=== PATIENT | male | born 1950 | race Caucasian/White ===

== ENCOUNTER → 2019-05-20 | Outpatient (CLI) | payer OTHER | END | disposition home or self-care (01) | LOC: RAH 10:10 | PROVIDERS: ATTEND Internal Medicine Hematology & Oncology | DX: N28.1 Cyst of kidney, acquired (principal); K86.1 Other chronic pancreatitis | CPT/HCPCS: 76700 ==

== ENCOUNTER → 2020-01-31 | Outpatient (CLI) | payer OTHER | END | disposition home or self-care (01) | LOC: RAH 14:42 | PROVIDERS: ATTEND Family Medicine | DX: R60.0 Localized edema (principal) | CPT/HCPCS: 93971 ==

== ENCOUNTER → 2020-07-24 | Outpatient (CLI) | payer OTHER ==
[2020-07-24 14:21] LABS: BASOPHILS % (AUTO) 0.5 % (0.0-5.0); EOSINOPHILS % (AUTO) 5.5 % (0.0-8.0); HEMATOCRIT 42.8 % (42-54); LYMPHOCYTES % (AUTO) 24.8 % (21.0-51.0); MEAN CORPUSCULAR HEMOGLOBIN 31.9 pg (27.0-33.0); MEAN CORPUSCULAR HGB CONC 33.2 g/dL (32.0-36.0); MEAN CORPUSCULAR VOLUME 96.2 fL (79-99); MONOCYTES % (AUTO) 10.1 % (3.0-13.0); NEUTROPHILS % (AUTO) 58.9 % (40.0-77.0); PLATELET COUNT (AUTO) 179 K/uL (130-400); RED BLOOD CELL COUNT(AUTO) 4.45 MIL/uL (4.50-6.20); RED CELL DISTRIBUTION WIDTH 11.9 % (11.0-15.5)
[2020-07-24 14:30] LABS: CREATININE 0.9 mg/dL (0.5-1.5); POTASSIUM 4.2 mmol/L (3.5-5.1)
--- NOTE | 2020-07-24 15:21 | NUR ---
ekg ekg reveiwed by dr. sweeney. requesting cardiac clearance. dr. serrato notified.message left with Candida at his office. ekg faxed to dr. serrato per his request. or banana loader notified
== END | disposition home or self-care (01) ==
LOC: DAH 10:00 → EDSTATUS 07-25 15:00
PROVIDERS: ATTEND Orthopaedic Surgery
DX: G56.01 Carpal tunnel syndrome, right upper limb (principal); Z20.828 Contact with and (suspected) exposure to other viral communicable diseases; I44.2 Atrioventricular block, complete; I45.10 Unspecified right bundle-branch block; Z53.8 Procedure and treatment not carried out for other reasons
CPT/HCPCS: 36415; 80048; 85025; 93005; A6260; C9803; U0003

== ENCOUNTER → 2020-09-11 | Outpatient (CLI) | payer OTHER | END | disposition home or self-care (01) | LOC: CANPRECLI → SHCH 16:05 | PROVIDERS: ATTEND Internal Medicine Cardiovascular Disease | DX: I10 Essential (primary) hypertension (principal) | CPT/HCPCS: 93306; 93356 ==

== ENCOUNTER 2020-10-20 05:55 | Day surgery (SDC) | payer OTHER ==
[2020-10-18 09:46] VITALS: BP 135/68
[2020-10-18 12:09] LABS: BASOPHILS % (AUTO) 1.3 % (0.0-5.0); EOSINOPHILS % (AUTO) 3.3 % (0.0-8.0); LYMPHOCYTES % (AUTO) 27.8 % (21.0-51.0); MEAN CORPUSCULAR HEMOGLOBIN 32.1 pg (27.0-33.0); MEAN CORPUSCULAR HGB CONC 34.3 g/dL (32.0-36.0); MEAN CORPUSCULAR VOLUME 93.6 fL (79-99); MONOCYTES % (AUTO) 6.5 % (3.0-13.0); NEUTROPHILS % (AUTO) 60.8 % (40.0-77.0); PLATELET COUNT (AUTO) 207 K/uL (130-400); RED CELL DISTRIBUTION WIDTH 12.2 % (11.0-15.5)
[2020-10-18 12:25] LABS: CREATININE 0.8 mg/dL (0.5-1.5); POTASSIUM 4.1 mmol/L (3.5-5.1)
[2020-10-18 12:31] LABS: INR 1.04 (0.85-1.15); PROTHROMBIN TIME 11.3 SEC (9.6-11.6)
[2020-10-18 12:32] LABS: PARTIAL THROMBOPLASTIN TIME 31.6 SEC (26.3-35.5)
[2020-10-20] VITALS (9 sets, daily range): BP systolic 92–127; BP diastolic 48–72
[~2020-10-20] VITALS: Ht 167.6 cm; Wt 77.7 kg
[~2020-10-20 05:55] MED LIST: LISI-809 PO; SODIUM CHLORIDE 0.9% 1000ML 1,000 ML IV SCH
[2020-10-20] MEDS ORDERED: MIDAZOLAM HCL 1 MG/ML 2ML VIAL ONE ×2 (07:44→07:58)
[2020-10-20] MEDS ORDERED: MEPERIDINE-PF 25 MG/ML SYG ONE ×2 (07:45→07:58)
[2020-10-20] MEDS ORDERED: LIDOCAINE HCL 2% 20ML ONE (07:45)
[2020-10-20] MEDS ORDERED: ISOPROTERENOL HCL 0.2 MG/ML AMP/VIAL/BAG ONE (08:10)
[2020-10-20] MEDS ORDERED: TRAMADOL HCL 50 MG TABLET PO SCH (09:45)
== END 2020-10-20 11:55 | disposition home or self-care (01) ==
LOC: DAH 05:55
PROVIDERS: ATTEND Internal Medicine Cardiovascular Disease
DX: I44.2 Atrioventricular block, complete (principal); I49.3 Ventricular premature depolarization; I45.10 Unspecified right bundle-branch block; I10 Essential (primary) hypertension; Z98.890 Other specified postprocedural states; Z79.01 Long term (current) use of anticoagulants; Z79.899 Other long term (current) drug therapy
CPT/HCPCS: 36415; 80048; 85025; 85610; 85730; 93619; 93623; A4215; A4216; A4221; A4222; A4223 ×3; A4606; A4663; C1730 ×2; C1894 ×3; J1644; J2175 ×2; J2250 ×2; J3490 ×2; 99156; 99157

== ENCOUNTER 2020-11-06 10:46 | Day surgery (SDC) | payer OTHER ==
[~2020-11-06] VITALS: Ht 182.9 cm; Wt 79.4 kg
[~2020-11-06 10:46] MED LIST changes: -SODIUM CHLORIDE 0.9% 1000ML 1,000 ML IV SCH
[2020-11-06 16:14] LABS: BASOPHILS % (AUTO) 0.6 % (0.0-5.0); EOSINOPHILS % (AUTO) 4.2 % (0.0-8.0); HEMATOCRIT 43.4 % (42-54); LYMPHOCYTES % (AUTO) 29.3 % (21.0-51.0); MEAN CORPUSCULAR HEMOGLOBIN 32.2 pg (27.0-33.0); MEAN CORPUSCULAR HGB CONC 33.9 g/dL (32.0-36.0); MEAN CORPUSCULAR VOLUME 95.2 fL (79-99); MONOCYTES % (AUTO) 7.8 % (3.0-13.0); NEUTROPHILS % (AUTO) 57.9 % (40.0-77.0); PLATELET COUNT (AUTO) 165 K/uL (130-400); RED BLOOD CELL COUNT(AUTO) 4.56 MIL/uL (4.50-6.20); RED CELL DISTRIBUTION WIDTH 12.3 % (11.0-15.5)
[2020-11-06 16:26] LABS: INR 1.06 (0.85-1.15); PROTHROMBIN TIME 11.5 SEC (9.6-11.6)
[2020-11-06 16:27] VITALS: BP 122/62
[2020-11-06 16:28] LABS: PARTIAL THROMBOPLASTIN TIME 33.9 SEC (26.3-35.5)
[2020-11-07] VITALS (10 sets, daily range): BP systolic 106–127; BP diastolic 53–80
[2020-11-07] MEDS ORDERED: LACTATED RINGERS 1000ML 1,000 ML IV SCH (08:00)
[2020-11-07] MEDS ORDERED: CEFAZOLIN SODIUM 1 GM VIAL IVP ONE (08:00)
[2020-11-07] MEDS ORDERED: CEFAZOLIN SODIUM 1 GM VIAL ONE (10:44)
[2020-11-07] MEDS ORDERED: SUCCINYLCHOLINE CHLORIDE 20 MG/ML 10 ML VIAL ONE (11:04)
[2020-11-07] MEDS ORDERED: PROPOFOL 10 MG/ML 20ML VIAL IV ONE (11:04)
[2020-11-07] MEDS ORDERED: DEXAMETHASONE SOD PHOSPHATE 10MG/ML 1ML VIAL ONE (11:04)
[2020-11-07] MEDS ORDERED: GLYCOPYRROLATE 1 MG/5 ML SYRINGE ONE (11:04)
[2020-11-07] MEDS ORDERED: LIDOCAINE PF 2% 5ML ABBOJECT ONE (11:04)
[2020-11-07] MEDS ORDERED: ROCURONIUM 10MG/1ML SYR 10 MG/ML ML ONE (11:05)
[2020-11-07] MEDS ORDERED: FENTANYL CITRATE PF 50 MCG/1 ML 2ML VIAL ONE ×2 (11:05→12:11)
[2020-11-07] MEDS ORDERED: MIDAZOLAM HCL 1 MG/ML 2ML VIAL ONE (11:05)
[2020-11-07] MEDS ORDERED: LIDOCAINE HCL-MPF 0.5% 50ML VIAL IJ ONE (11:10)
[2020-11-07] MEDS ORDERED: MEPERIDINE-PF 25 MG/ML SYG ONE ×2 (12:23→12:45)
== END 2020-11-07 13:45 | disposition home or self-care (01) ==
LOC: DAH 10:46
PROVIDERS: ATTEND Orthopaedic Surgery
DX: G56.01 Carpal tunnel syndrome, right upper limb (principal); Z87.891 Personal history of nicotine dependence; Z20.828 Contact with and (suspected) exposure to other viral communicable diseases; Z79.01 Long term (current) use of anticoagulants; Z79.899 Other long term (current) drug therapy
CPT/HCPCS: 36415; 64721; 85025; 85610; 85730; 87426; 93005; A4221; A4222; A4223; A4565; A4663; A4930; A6223; J0330; J0690; J1100; J2001; J2175 ×2; J2250; J2704; J3010 ×2; J3490 ×2; J7120; U0003

== ENCOUNTER 2020-11-11 02:20 | Emergency (ER) | payer OTHER ==
[2020-11-11] MEDS ORDERED: KETOROLAC TROMETHAMINE 60 MG/2 ML VIAL ONE (02:57)
== END 2020-11-11 03:10 | disposition home or self-care (01) ==
LOC: EDH 02:20
DX: G89.18 Other acute postprocedural pain (principal)
CPT/HCPCS: 29125; 96372; 99283; J1885

== ENCOUNTER 2021-03-05 13:57 | Emergency (ER) | payer OTHER ==
[~2021-03-05] VITALS: Ht 182.9 cm; Wt 81.6 kg
[2021-03-05] MEDS ORDERED: TETANUS/DIPHTHERIA TOXOID [ADULT] 0.5 ML VIAL IM ONE (17:00)
[2021-03-05] MEDS ORDERED: HYDROCODONE/ACETAMINOPHEN 5/325 MG TAB PO ONE (17:00)
[2021-03-05] MEDS ORDERED: CEPH500B PO (17:26)
== END 2021-03-05 17:40 | disposition home or self-care (01) ==
LOC: EDH 13:57
DX: S61.412A Laceration without foreign body of left hand, initial encounter (principal); Z79.899 Other long term (current) drug therapy; W32.0XXA Accidental handgun discharge, initial encounter; Y93.89 Activity, other specified; Y92.89 Other specified places as the place of occurrence of the external cause; Y99.8 Other external cause status
CPT/HCPCS: 12001; 90471; 90714

== ENCOUNTER 2021-03-18 16:18 | Emergency (ER) | payer OTHER ==
[~2021-03-18] VITALS: Ht 182.9 cm; Wt 81.6 kg
[~2021-03-18 16:18] MED LIST changes: +CEPH500B PO
[2021-03-18 16:56] VITALS: BP 141/77
== END 2021-03-18 17:01 | disposition home or self-care (01) ==
LOC: EDH 16:18
DX: S61.412D Laceration without foreign body of left hand, subsequent encounter (principal); Z79.899 Other long term (current) drug therapy; X58.XXXD Exposure to other specified factors, subsequent encounter
CPT/HCPCS: 99281

== ENCOUNTER → 2021-10-12 | Outpatient (CLI) | payer OTHER ==
[~2021-10-12] MED LIST changes: -LISI-809 PO; +LISI5TAB21 PO
== END | disposition home or self-care (01) ==
LOC: SHCH 13:34
PROVIDERS: ATTEND Internal Medicine Cardiovascular Disease
DX: I87.2 Venous insufficiency (chronic) (peripheral) (principal)
CPT/HCPCS: 93970

== ENCOUNTER 2022-02-10 21:00 | Emergency (ER) | payer OTHER ==
[~2022-02-10] VITALS: Ht 182.9 cm; Wt 83.5 kg
[2022-02-10] MEDS ORDERED: GABA300C PO (21:27)
[2022-02-10] MEDS ORDERED: HYDROCODONE/ACETAMINOPHEN 5/325 MG TAB PO ONE (21:30)
[2022-02-10] MEDS ORDERED: KETOROLAC 60 MG VIAL (30MG/ML) IM ONE (21:30)
[2022-02-10 22:13] VITALS: BP 135/78
== END 2022-02-10 22:12 | disposition home or self-care (01) ==
LOC: EDH 21:00
DX: M79.641 Pain in right hand (principal); Z79.1 Long term (current) use of non-steroidal anti-inflammatories (NSAID); Z79.899 Other long term (current) drug therapy
CPT/HCPCS: 96372; 99283; J1885

== ENCOUNTER → 2022-06-13 | Outpatient (CLI) | payer OTHER ==
[~2022-06-13] MED LIST changes: +GABA300C PO
== END | disposition home or self-care (01) ==
LOC: SHCH 15:05
PROVIDERS: ATTEND Internal Medicine Cardiovascular Disease
DX: I87.2 Venous insufficiency (chronic) (peripheral) (principal)
CPT/HCPCS: 93970

== ENCOUNTER → 2022-09-18 | Outpatient (CLI) | payer OTHER ==
[2022-09-18 16:23] LABS: BASOPHILS % (AUTO) 0.6 % (0.0-5.0); EOSINOPHILS % (AUTO) 2.1 % (0.0-8.0); HEMATOCRIT 46.4 % (42-54); LYMPHOCYTES % (AUTO) 17.5 % (21.0-51.0); MEAN CORPUSCULAR HEMOGLOBIN 32.5 pg (27.0-33.0); MEAN CORPUSCULAR HGB CONC 32.8 g/dL (32.0-36.0); MEAN CORPUSCULAR VOLUME 99.1 fL (79-99); MONOCYTES % (AUTO) 7.9 % (3.0-13.0); NEUTROPHILS % (AUTO) 71.5 % (40.0-77.0); PLATELET COUNT (AUTO) 201 K/uL (130-400); RED BLOOD CELL COUNT(AUTO) 4.68 MIL/uL (4.50-6.20); RED CELL DISTRIBUTION WIDTH 12.4 % (11.0-15.5); WHITE BLOOD COUNT (AUTO) 10.8 K/uL (4.8-10.8)
[2022-09-18 16:31] LABS: POTASSIUM 4.6 mmol/L (3.5-5.1)
[2022-09-18 16:34] LABS: INR 0.95 (0.85-1.15); PROTHROMBIN TIME 10.4 SEC (9.6-11.6)
[2022-09-18 16:35] LABS: PARTIAL THROMBOPLASTIN TIME 32.7 SEC (26.3-35.5)
== END | disposition home or self-care (01) ==
LOC: LAB 15:30
PROVIDERS: ATTEND Internal Medicine Cardiovascular Disease
DX: I10 Essential (primary) hypertension (principal); I87.1 Compression of vein; I87.2 Venous insufficiency (chronic) (peripheral); M79.89 Other specified soft tissue disorders
CPT/HCPCS: 36415; 80048; 85025; 85610; 85730

== ENCOUNTER → 2023-05-10 | Outpatient (CLI) | payer OTHER | END | disposition home or self-care (01) | LOC: SHCH 12:48 | PROVIDERS: ATTEND Internal Medicine Cardiovascular Disease | DX: I87.2 Venous insufficiency (chronic) (peripheral) (principal); I87.1 Compression of vein; Z98.890 Other specified postprocedural states | CPT/HCPCS: 93970 ==

== ENCOUNTER 2024-01-10 04:13 | Observation (INO) | payer OTHER ==
[~2024-01-10] VITALS: Ht 182.9 cm; Wt 79.1 kg
[2024-01-10 04:29] LABS: BASOPHILS # (AUTO) 0.05 K/uL (0.00-0.20); BASOPHILS % (AUTO) 0.2 % (0.0-5.0); EOSINOPHILS # (AUTO) 0.04 K/uL (0.00-0.70); EOSINOPHILS % (AUTO) 0.2 % (0.0-8.0); HEMATOCRIT 51.2 % (42-54); IMMATURE GRANULOCYTE ABSOLUTE 0.11 K/uL (0-1); LYMPHOCYTES # (AUTO) 1.4 K/uL (1.0-4.8); LYMPHOCYTES % (AUTO) 6.3 % (21.0-51.0); MEAN CORPUSCULAR HEMOGLOBIN 32.4 pg (27.0-33.0); MEAN CORPUSCULAR HGB CONC 34.8 g/dL (32.0-36.0); MEAN CORPUSCULAR VOLUME 93.1 fL (79-99); MONOCYTES # (AUTO) 1.3 K/uL (0.1-1.0); MONOCYTES % (AUTO) 5.9 % (3.0-13.0); NEUTROPHILS % (AUTO) 86.9 % (40.0-77.0); PLATELET COUNT (AUTO) 204 K/uL (130-400); RED CELL DISTRIBUTION WIDTH 12.9 % (11.0-15.5); WHITE BLOOD COUNT (AUTO) 21.9 K/uL (4.8-10.8)
[2024-01-10] MEDS: LACTATED RINGERS 1000ML 1,000 ML IV ONE (04:34)
[2024-01-10 04:38] LABS: CREATININE 1.5 mg/dL (0.5-1.3); POTASSIUM 4.7 mmol/L (3.5-5.1)
[2024-01-10 05:42] LABS: ADD UA MICROSCOPIC YES; APPEARANCE,URINE CLEAR (CLEAR); BILIRUBIN,URINE NEGATIVE (NEGATIVE); COLOR,URINE LIGHT-YELLOW (YELLOW); GLUCOSE, URINE (UA) >=1000 mg/dL (NEGATIVE); KETONES,URINE 20 mg/dL (NEGATIVE); LEUKOCYTE ESTERASE ,URINE 25 Leu/uL (NEGATIVE); NITRATE,URINE NEGATIVE (NEGATIVE); OCCULT BLOOD,URINE SMALL (NEGATIVE); PROTEIN,URINE NEGATIVE (NEGATIVE); UROBILINOGEN,URINE 0.2 mg/dL (0.2-1.0)
[2024-01-10 05:46] LABS: BACTERIA,URINE RARE /HPF (None Seen)
[2024-01-10] MEDS: CEFTRIAXONE 2GM VIAL IVPB ONE (05:54)
[2024-01-10] MEDS: 0.9%NACL 1000ML 2,328 ML IV ONE (05:56)
[2024-01-10 06:06] LABS: ALBUMIN 3.9 g/dL (3.5-5.0); BILIRUBIN,TOTAL 1.1 mg/dL (0.2-1.0); CREATININE 1.4 mg/dL (0.5-1.3); POTASSIUM 4.3 mmol/L (3.5-5.1); TOTAL PROTEIN, SERUM 6.9 g/dL (6.0-8.3)
[2024-01-10] MEDS: METRONIDAZOLE 500MG/100ML BAG IV SCH (06:08)
[2024-01-10] MEDS ORDERED: DOCUSATE SODIUM 100 MG CAP PO PRN (06:30)
[2024-01-10] MEDS ORDERED: LACTULOSE 20 GM/30 ML UDCUP PO PRN (06:30)
[2024-01-10] MEDS ORDERED: ACETAMINOPHEN 325 MG TAB PO PRN (06:30)
[2024-01-10] MEDS ORDERED: TEMAZEPAM 15 MG CAPSULE PO PRN (06:30)
[2024-01-10] MEDS ORDERED: IPRATROPIUM 0.5 MG/2.5 ML INH IH PRN (06:30)
[2024-01-10] MEDS ORDERED: ACETAMINOPHEN 650 MG SUPPOSITORY RC PRN (06:30)
[2024-01-10] MEDS ORDERED: ALBUTEROL 0.083% 2.5 MG/3 ML INH IH PRN (06:30)
[2024-01-10] MEDS ORDERED: ONDANSETRON 4MG INJ IVP PRN (06:30)
[2024-01-10] MEDS ORDERED: HYDRALAZINE 20MG/ML VIAL IV PRN (06:30)
[2024-01-10] MEDS: MORPHINE 4 MG SYG IVP ONE (06:38)
[2024-01-10] MEDS: ONDANSETRON 4MG INJ IVP ONE (06:38)
[2024-01-10] MEDS: ASPIRIN 81MG CHEW TAB PO SCH (06:45)
[2024-01-10] MEDS ORDERED: DEXTROSE 50%-WATER 50 ML DISP.SYRIN IV PRN (07:00)
[2024-01-10] MEDS ORDERED: MAGNESIUM 2GM PREMIX 50ML 50 ML IV PRN (07:00)
[2024-01-10] MEDS ORDERED: POTASSIUM CHLORIDE 10MEQ/100ML 100 ML IV PRN (07:00)
[2024-01-10] MEDS ORDERED: GLUCAGON 1MG KIT 1 MG ML IM PRN (07:00)
[2024-01-10] MEDS: PANTOPRAZOLE 40 MG/VIAL IVP SCH (07:09)
[2024-01-10] MEDS: ENOXAPARIN SODIUM 60 MG/0.6 ML SQ SCH (07:09)
[2024-01-10] MEDS: PANTOPRAZOLE 40 MG/VIAL ONE (07:20)
[2024-01-10] MEDS: 0.9%NACL 1000ML 1,000 ML IV SCH (07:22)
[2024-01-10] MEDS: INSULIN HUMULIN R 100 UNIT/ML 3ML SQ SCH (07:30)
[2024-01-10 07:45] VITALS: O2SAT 94
[2024-01-10 08:15] VITALS: BP 153/63; PULSE 49; RESP 18
[2024-01-10] MEDS ORDERED: LISI20TA24 PO (10:30)
[2024-01-10] MEDS ORDERED: NAPR-1023 PO (10:30)
[2024-01-10] MEDS ORDERED: TRAZ-253 PO (10:30)
[2024-01-10] MEDS ORDERED: MORP100S6 PO (10:30)
[2024-01-10] MEDS ORDERED: TEST200V21 IM (10:30)
[2024-01-10] MEDS: KETOROLAC 15MG/ML VIAL (15MG/ML) IV ONE (10:43)
[2024-01-10] MEDS: LACTULOSE 20 GM/30 ML UDCUP PO ONE (10:43)
[2024-01-10 10:52] LABS: AMPHET/METH SCREEN,URINE NEGATIVE (NEGATIVE); BARBITURATE SCREEN, URINE NEGATIVE (NEGATIVE); BENZODIAZEPINES SCREEN,URINE NEGATIVE (NEGATIVE); CANNABINOID SCREEN,URINE NEGATIVE (NEGATIVE); COCAINE SCREEN,URINE NEGATIVE (NEGATIVE); OPIATE SCREEN,URINE POSITIVE (NEGATIVE); PHENCYCLIDINE SCREEN,URINE NEGATIVE (NEGATIVE)
[2024-01-10] MEDS: MORPHINE 2 MG SYG IVP PRN (10:54)
[2024-01-10 11:35] VITALS: BP 132/67; PULSE 49; RESP 18
[2024-01-10] MEDS ORDERED: IOHEXOL 350 MG/ML 100ML INFUS..BTL IV ONE (11:54)
[2024-01-10 12:00] LABS: HEMOGLOBIN A1C 5.6 % (4.0-6.0)
[2024-01-10 12:13] LABS: MAGNESIUM 1.8 mg/dL (1.80-2.40); THYROID STIMULATING HORMONE 0.34 uIU/mL (0.36-3.74)
[2024-01-10 16:10] VITALS: BP 143/66; PULSE 52; RESP 18
[2024-01-10] MEDS: ENOXAPARIN SODIUM 80 MG/0.8 ML SQ SCH (17:32)
[2024-01-10] MEDS ORDERED: CEFTRIAXONE 2GM VIAL IVPB SCH (18:00)
[2024-01-10] MEDS: ATORVASTATIN 40 MG TABLET PO SCH (19:46)
[2024-01-10 19:50] VITALS: O2SAT 97
[2024-01-10 20:12] VITALS: BP 146/77; PULSE 51; RESP 18
[2024-01-11] MEDS ORDERED: CEFTRIAXONE 1G VIAL IVPB SCH (06:00)
== END 2024-01-10 21:05 | disposition left against medical advice (07) ==
LOC: EDH 04:13 → EDHIP 06:20 → 4DH 07:45
PROVIDERS: ADMIT Internal Medicine; ATTEND Internal Medicine
DX: A41.9 Sepsis, unspecified organism (principal); R65.20 Severe sepsis without septic shock; N17.0 Acute kidney failure with tubular necrosis; I48.92 Unspecified atrial flutter; E87.1 Hypo-osmolality and hyponatremia; E87.20 Acidosis, unspecified; E86.0 Dehydration; I21.A1 Myocardial infarction type 2; I12.9 Hypertensive chronic kidney disease with stage 1 through stage 4 chronic kidney disease, or unspecified chronic kidney disease; N18.30 Chronic kidney disease, stage 3 unspecified; N39.0 Urinary tract infection, site not specified; I73.9 Peripheral vascular disease, unspecified; I87.2 Venous insufficiency (chronic) (peripheral); K86.1 Other chronic pancreatitis; K86.2 Cyst of pancreas; I25.2 Old myocardial infarction; Z95.820 Peripheral vascular angioplasty status with implants and grafts; Z79.899 Other long term (current) drug therapy
CPT/HCPCS: 96376 ×2; 96372; 96365; 96375; 81001; 74176; 96361; 96366; 83036; 84443; 82550 ×2; 83735; 84484 ×2; 80053; 80305; 82140; 85025; 87040 ×2; 87088; 82948 ×3; 84439; 83605 ×2; 84481; 36415; 71045; 74174; 93306; 99291; 93005 ×2; G0378 ×14; J7120; J2270 ×3; J7030; J0696; J2405; J1650 ×2; C9113 ×2; J3490 ×3; Q9967; 80048; J1885

== ENCOUNTER → 2024-08-26 | Outpatient (CLI) | payer OTHER ==
[~2024-08-26] MED LIST changes: -CEPH500B PO; -GABA300C PO; +LISI20TA24 PO; -LISI5TAB21 PO; +MORP100S6 PO; +NAPR-1023 PO; +TEST200V21 IM; +TRAZ-253 PO
--- NOTE | 2024-08-26 15:41 | HMCIMG ---
MR WRIST RIGHT WO REASON: PAIN COMPARISON: None TECHNIQUE: Axial images are obtained from distal radius and ulna through the level of the midportion of the carpals. Sagittal and coronal images were performed as well. FINDINGS: There are marked degenerative changes in the radiocarpal joint space. There is a focal fluid collection extending into the soft tissues from the radial styloid this measures 1 cm, overall appearance is most consistent with a ganglion cyst. This is present along the palm are or anterolateral aspect of the wrist. There is a small amount of fluid in the joint between the distal radius and the ulna. There are several small fluid collections present along the lateral and dorsal aspect of the wrist also consistent with ganglions. There is some narrowing of intercarpal joint spaces as well. Carpal metacarpal joint spaces appear better preserved. The exception is at the base of the thumb where there is moderate degenerative change. There are some fluid in the first carpometacarpal joint as well. Ligaments and tendons appear intact. Soft tissues are otherwise unremarkable. IMPRESSION: 1. Focal fluid collection present in the anterior or palmar aspect of the wrist along the lateral side, near the ulnar styloid, this measures 10 x 11 mm and is most consistent with a ganglion cyst. 2. Probable additional small ganglion cysts along the ulnar or medial aspect of the wrist dorsally. 3. Degenerative changes of the radiocarpal joint as well as in the first carpometacarpal joint.
== END | disposition home or self-care (01) ==
LOC: RAH 14:07
PROVIDERS: ATTEND Student in an Organized Health Care Education/Training Program
DX: M18.11 Unilateral primary osteoarthritis of first carpometacarpal joint, right hand (principal); M19.041 Primary osteoarthritis, right hand; M67.841 Other specified disorders of synovium, right hand; M79.9 Soft tissue disorder, unspecified
CPT/HCPCS: 73221

== ENCOUNTER → 2024-10-20 | Outpatient (CLI) | payer OTHER ==
[~2024-10-20] MED LIST changes: +ALBUHFA IH; +GUAI237S60 PO; +METH4TAB3 PO; -NAPR-1023 PO; +NAPR-1194 PO
== END | disposition home or self-care (01) ==
LOC: SHCH 10:07
PROVIDERS: ATTEND Internal Medicine Cardiovascular Disease
DX: I87.2 Venous insufficiency (chronic) (peripheral) (principal); I87.1 Compression of vein; I73.9 Peripheral vascular disease, unspecified
CPT/HCPCS: 93925; 93970

== ENCOUNTER 2024-10-23 17:48 | Emergency (ER) | payer OTHER ==
[~2024-10-23] VITALS: Ht 182.9 cm; Wt 79.4 kg
[~2024-10-23 17:48] MED LIST changes: -ALBUHFA IH; -GUAI237S60 PO; -METH4TAB3 PO
[2024-10-23 18:50] LABS: BASOPHILS # (AUTO) 0.02 K/uL (0.00-0.20); BASOPHILS % (AUTO) 0.3 % (0.0-5.0); EOSINOPHILS # (AUTO) 0.04 K/uL (0.00-0.70); EOSINOPHILS % (AUTO) 0.6 % (0.0-8.0); HEMATOCRIT 43.2 % (42-54); IMMATURE GRANULOCYTE ABSOLUTE 0.06 K/uL (0-1); LYMPHOCYTES % (AUTO) 14.6 % (21.0-51.0); MEAN CORPUSCULAR HEMOGLOBIN 31.6 pg (27.0-33.0); MEAN CORPUSCULAR HGB CONC 32.9 g/dL (32.0-36.0); MONOCYTES # (AUTO) 0.5 K/uL (0.1-1.0); MONOCYTES % (AUTO) 7.1 % (3.0-13.0); NEUTROPHILS # (AUTO) 5.3 K/uL (1.8-7.7); NEUTROPHILS % (AUTO) 76.5 % (40.0-77.0); PLATELET COUNT (AUTO) 253 K/uL (130-400); WHITE BLOOD COUNT (AUTO) 6.9 K/uL (4.8-10.8)
--- NOTE | 2024-10-23 18:50 | EKG ---
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
[2024-10-23 18:57] LABS: POTASSIUM 4.2 mmol/L (3.5-5.1)
[2024-10-23 19:10] LABS: ALBUMIN 2.7 g/dL (3.5-5.0); BILIRUBIN,DIRECT 0.2 mg/dL (0.0-0.3); BILIRUBIN,TOTAL 0.5 mg/dL (0.2-1.0); TOTAL PROTEIN, SERUM 6.1 g/dL (6.0-8.3)
[2024-10-23 19:19] LABS: B-TYPE NATRIURETIC PEPTIDE 38 pg/mL (0-100)
[2024-10-23] MEDS: IpraTROPium/alBUTERol SULFATE 3 ML SOLUTION IH ONE (19:34)
[2024-10-23 19:35] VITALS: PULSE 74; RESP 23
--- NOTE | 2024-10-23 19:47 | HMCIMG ---
CHEST 1VW CLINICAL HISTORY: cough COMPARISON: 01/10/2024 TECHNIQUE: Single view of the chest was obtained. FINDINGS: Lungs are clear. The cardiac size and mediastinum are unremarkable. The bony structures are stable. IMPRESSION: No acute cardiopulmonary process identified.
[2024-10-23] MEDS: guaiFENesin-DM 200/20MG 10ML PO ONE (20:30)
[2024-10-23] MEDS: Solu-medROL 125MG VIAL IVP ONE (20:31)
[2024-10-23] MEDS: 0.9%NACL 1000ML 1,000 ML IV ONE (20:31)
[2024-10-23] MEDS: ondanSETRON 4MG INJ IVP ONE (20:31)
--- NOTE | 2024-10-23 20:50 | ERN ---
ED Note History of Present Illness Stated Complaint: MULT COMPL Chief Complaint: Nausea,Vomiting,Diarrhea Time Seen by MD: 18:10 Time Seen by Midlevel: 18:10 Dictation: The patient is a 73-year-old male with history of carpal tunnel who presents to the emergency department with complaints of two days of cough with green phlegm, nausea nonbloody vomiting, diarrhea. Reports upper abdominal pain that is worse with with coughing, patient reports fevers. Reports she was seen by his primary doctor and was prescribed a Z-Ben which he has been taking. Allergies: Coded Allergies: No Known Drug Allergies (Verified Allergy, Unknown, 07/24/20) ketorolac (Unverified Allergy, Unknown, VOMITTING, 01/10/24) Home Meds Reported Medications Trazodone HCl (Desyrel) 50 Mg Tab, 1 TAB PO HSPRN PRN for INSOMNIA 01/10/24 Testosterone Cypionate (Testosterone Cypionate) 200 Mg/Ml Vial, 1 ML IM weekly 01/10/24 Lisinopril (Lisinopril) 20 Mg Tablet, 1 TAB PO DAILY 01/10/24 Naproxen (Naproxen) 500 Mg Tablet, 1 TAB PO BID PRN for PAIN 01/10/24 Morphine Sulfate (Morphine Sulfate) 100 Mg/5 Ml (20 Mg/Ml) Solution, 10 PO Q6HPRN PRN for PAIN 01/10/24 Past Medical History Past Medical History: Hypertension, Other Additional Past Medical Hx: CARPAL TUNNEL Surgical History: Other Surgical History Other: RT HAND CARPAL TUNNEL SURGERY Family History: Negative Social History: Negative RN Note Reviewed/Agreed w/PFSH: Yes Review of System Dictation Constitutional: Negative for chills, and weight loss positive for fever Eyes: Negative for injury, pain,redness, and discharge ENT: Negative for injury,pain or swelling Cardiovascular: Negative for chest pain, palpitations, and edema Respiratory: Negative for shortness of breath, and wheezing, positive for cough Abdomen/GI: Negative for and constipation positive for abdominal pain, nausea, vomiting, diarrhea, Back: Negative for injury and pain : Negative for injury, bleeding and discharge MS/Extremity: Negative for injury and deformity Skin: Negative for rash, and discoloration Neuro: Negative for headache, weakness, numbness, tingling, and seizure Psych: Negative for suicide ideation, homicidal ideation, and hallucinations Initial Vital Sign VS Vital Signs Date Time Temp Pulse Resp B/P (MAP) Pulse Ox O2 Delivery O2 Flow Rate FiO2 10/23/24 18:00 98.4 70 18 104/72 97 Room Air 0 10/23/24 20:30 21 Physical Exam Dictation Vital Signs reviewed General Appearance: Alert, oriented x 3, no acute distress, well developed, nourished. Head and Face: non-traumatic. Eyes: PERRL, pink conjunctivas, eyelid no trauma, anterior chamber with arcus senilis. Ears: Pinnas intact and no signs of trauma or erythema ear canals clear and no discharge TM no erythema Nose: No discharge, no bleeding. Oropharynx: Mouth normal, tongue pink. pharynx clear,no erythema, tonsils no exudates, no abscesses noted, mucous membrane moist Neck: Supple, non-tender, no thyromegaly, no masses, no JVD, no bruits Breast:Deferred Chest:No tenderness, no crepitus, no paradoxical movement, no retractions Lungs:Clear, well-ventilated, symmetric, no rales, no wheezing, no rhonchi, no stridor, good breath sounds bilaterally Heart: Regular rate, regular rhythm, no murmur, no gallops Vascular: no peripheral edema, Abdomen: Soft, positive bowel sounds, nondistended, no guarding, nontender, no rebound, no masses no hepatomegaly, no splenomegaly, no Bajwa's sign, no hernias. Rectal: Deferred Genital: Deferred Neurological: Normal speech, motor function intact, sensory function intact Musculoskeletal: Neck nontender, full range of motion, back nontender, full range of motion, Extremities: nontender, full range of motion Skin: Color pink, dry, no turgor, no rash, no lacerations, no abrasions, no contusions. Lymphatic: Deferred Results (Laboratory/Radiology) Laboratory/Radiology Laboratory Tests Test 10/23/24 18:35 10/23/24 20:48 10/23/24 21:34 White Blood Count 6.9 K/uL (4.8-10.8) Red Blood Count 4.50 MIL/uL (4.50-6.20) Hemoglobin 14.2 g/dL (14.0-18.0) Hematocrit 43.2 % (42-54) Mean Corpuscular Volume 96.0 fL (79-99) Mean Corpuscular Hemoglobin 31.6 pg (27.0-33.0) Mean Corpuscular Hemoglobin Concent 32.9 g/dL (32.0-36.0) Red Cell Distribution Width 13.0 % (11.0-15.5) Platelet Count 253 K/uL (130-400) Mean Platelet Volume 9.5 fL (7.5-10.5) Immature Granulocyte % (Auto) 0.9 % (0-1) Neutrophils (%) (Auto) 76.5 % (40.0-77.0) Lymphocytes (%) (Auto) 14.6 % (21.0-51.0) L Monocytes (%) (Auto) 7.1 % (3.0-13.0) Eosinophils (%) (Auto) 0.6 % (0.0-8.0) Basophils (%) (Auto) 0.3 % (0.0-5.0) Neutrophils # (Auto) 5.3 K/uL (1.8-7.7) Lymphocytes # (Auto) 1.0 K/uL (1.0-4.8) Monocytes # (Auto) 0.5 K/uL (0.1-1.0) Eosinophils # (Auto) 0.04 K/uL (0.00-0.70) Basophils # (Auto) 0.02 K/uL (0.00-0.20) Absolute Immature Granulocyte (auto 0.06 K/uL (0-1) Nucleated Red Blood Cells 0.0 % (0.0-0.19) Sodium Level 132 mmol/L (136-145) L Potassium Level 4.2 mmol/L (3.5-5.1) Chloride Level 98 mmol/L (101-111) L Carbon Dioxide Level 32 mmol/L (21-32) Blood Urea Nitrogen 9 mg/dL (7-18) Creatinine 1.0 mg/dL (0.5-1.3) Glomerular Filtration Rate Calc 79 mL/min (>90) Random Glucose 123 mg/dL (70-105) H Total Calcium 8.1 mg/dL (8.5-10.1) L Total Bilirubin 0.5 mg/dL (0.2-1.0) Direct Bilirubin 0.2 mg/dL (0.0-0.3) Aspartate Amino Transf (AST/SGOT) 57 U/L (10-37) H Alanine Aminotransferase (ALT/SGPT) 37 U/L (12-78) Alkaline Phosphatase 78 U/L (50-136) Total Creatine Kinase 475 U/L (21-232) #*H 551 U/L (21-232) *H Troponin I High Sensitivity 31 ng/L (4-75) B-Type Natriuretic Peptide 38 pg/mL (0-100) Total Protein 6.1 g/dL (6.0-8.3) Albumin 2.7 g/dL (3.5-5.0) L Lipase 8 U/L (16-77) L Influenza Type A Antigen Negative For Type A Influenza Type B Antigen Negative For Type B SARS-CoV-2 Antigen (Rapid) PRESUMPTIVE NEGATIVE Urine Color LIGHT-YELLOW (YELLOW) Urine Appearance CLEAR (CLEAR) Urine pH 6.0 (5.0-8.0) Urine Specific [place] 1.011 (1.001-1.031) Urine Protein NEGATIVE mg/dL (NEGATIVE) Urine Glucose (UA) NEGATIVE mg/dL (NEGATIVE) Urine Ketones 10 mg/dL (NEGATIVE) H Urine Occult Blood NEGATIVE (NEGATIVE) Urine Nitrate NEGATIVE (NEGATIVE) Urine Bilirubin NEGATIVE mg/dL (NEGATIVE) Urine Urobilinogen 0.2 mg/dL (0.2-1.0) Urine Leukocyte Esterase NEGATIVE [place]/uL REASON: cough ORDERING PHYSICIAN: GERRY SOMERS PROCEDURE: CXR1VW - CHEST 1VW CHEST 1VW CLINICAL HISTORY: cough COMPARISON: 01/10/2024 TECHNIQUE: Single view of the chest was obtained. FINDINGS: Lungs are clear. The cardiac size and mediastinum are unremarkable. The bony structures are stable. IMPRESSION: No acute cardiopulmonary process identified. Labs Reviewed?: Yes EKG: (+) rhythm (Sinus rhythm), (+) RBBB, (+) unchanged EKG Comment: Date:10/23/2024 Time:1848 Ventricular rate:67 RI interval:190 QRS duration:144 QT/QTc:414 EKG interpretation: Sinus rhythm, right bundle-branch block Reviewed by ED Attending no STEMI ED Course ED Course Orders Procedure Category Date Status Time Cbc With Differential LAB 10/23/24 Complete 18:17 B-Type Natriuretic LAB 10/23/24 Complete Peptide 18:17 Chest 1vw RAD 10/23/24 Resulted 18:17 12 Lead Ekg Tracing- EKG 10/23/24 Complete Technical 18:17 0.9%Nacl 1000ml (Ns PHA 10/23/24 In Process 1000ml) 18:30 Creatine Kinase, Total LAB 10/23/24 Complete 18:17 Troponin I High LAB 10/23/24 Complete Sensitivity 18:17 Urinalysis Profile LAB 10/23/24 Complete 18:17 Basic Metabolic Panel LAB 10/23/24 Complete 18:17 Covid19 (Sars Antigen LAB 10/23/24 Complete Rapid) 18:17 Influenza Type A & B, LAB 10/23/24 Complete Rapid 18:17 Methylprednisolone PHA 10/23/24 Complete Succ 125mg (Solu-Medr 18:30 Ipratropium/Albuterol PHA 10/23/24 Complete Neb (Duoneb) 18:30 Hepatic Function Panel LAB 10/23/24 Complete 18:17 Lipase LAB 10/23/24 Complete 18:17 Ondansetron 4mg Inj PHA 10/23/24 Complete (Zofran 4mg Inj) 18:30 Guaifenesin-Dm PHA 10/23/24 Complete 200/20mg 10ml 18:30 Creatine Kinase, Total LAB 10/23/24 Complete 21:20 Current Medications Medications (Trade) Dose Ordered Sig/Bryan Route PRN Reason Start Time Stop Time Status Last Admin Dose Admin Albuterol (DUOneb) 1 UDVIAL ONCE ONCE IH 10/23/24 18:30 10/23/24 18:31 DC 10/23/24 19:34 Guaifenesin/ Dextromethorphan (RobiTUSSin DM 200/20MG 10ML) 10 ml ONCE ONCE PO 10/23/24 18:30 10/23/24 18:31 DC 10/23/24 20:30 Methylprednisolone Sodium Succinate (Solu-medROL 125MG) 125 mg ONCE ONCE IVP 10/23/24 18:30 10/23/24 18:31 DC 10/23/24 20:31 Ondansetron HCl (zoFRAN 4MG INJ) 4 mg ONCE ONCE IVP 10/23/24 18:30 10/23/24 18:31 DC 10/23/24 20:31 Sodium Chloride 1,000 ml @ 125 mls/hr ONCE ONCE IV 10/23/24 18:30 10/24/24 02:29 10/23/24 20:31 Vital Signs Date Time Temp Pulse Resp B/P (MAP) Pulse Ox O2 Delivery O2 Flow Rate FiO2 10/23/24 21:23 97.3 57 21 115/91 97 Room Air* 0 21 10/23/24 20:30 61 20 109/73 96 Room Air* 0 21 10/23/24 19:35 74 23 10/23/24 18:00 98.4 70 18 104/72 97 Room Air 0 Medical Decision Making MDM The patient is a 73-year-old male with history of carpal tunnel who presents to the emergency department with complaints of two days of cough with green phlegm, nausea nonbloody vomiting, diarrhea. Reports upper abdominal pain that is worse with with coughing, patient reports fevers. Reports she was seen by his primary doctor and was prescribed a Z-Ben which he has been taking. CBC showed no leukocytosis, no anemia, chemistry showed mild hyponatremia, hypochloremia, GFR of 79, slightly elevated AST, negative lipase, negative troponin, CK level of 475. Patient received a L in ER and CK still slightly elevated. Chest x-ray showed no acute pathology. EKG unchanged from previous visits. Spoke to patient's about admission for hydration due to a elevated CK level. At this time patient does not want to be admitted to the hospital. Risks and benefits discussed with the patient who continues to refuse admission. Patient instructed he just wants to go home and get treatments for his cough. Patient instructed to follow up with the his PCP and to return if symptoms worsen. Patient agrees to follow up with primary doctor. Patient at this time in no acute distress, nontoxic appearance, stable vital signs. Differential diagnosis: COVID 19 infection, influenza, dehydration, gastroenteritis, pneumonia, ACS Need for hospitalization: Patient does not meet criteria for hospitalization. There are no social concerns with this patient. DX & DISP Disposition: Discharge Departure Impression: Primary Impression: Bronchitis Additional Impressions: Viral illness, Cough, Elevated CK Condition: Stable Scripts Methylprednisolone (Medrol) 4 Mg Tab.ds.pk 4 MG PO AD for 6 Days, #1 PACK Day 1: Take 2 tablets before breakfast,1 tablet after lunch and supper, and 2 tablets at bedtime. Day 2: Take1 tablet before breakfast,1 tablet after lunch,1 tablet after supper, and 2 tablets at bedtime. Day 3: Take 1 tablet before breakfast, 1 tablet after lunch, 1 tablet after supper, and 1 tablet at bedtime. Day 4: Take 1 tablet before breakfast, 1 tablet after lunch, and 1 tablet at bedtime. Day 5: Take1 tablet before breakfast and 1 tablet at bedtime. Day 6: Take 1 tablet before breakfast. Prov: SOMERS,GERRY JUAREZ 10/23/24 Albuterol Sulfate (Ventolin Hfa/Proventil Hfa/Proair Hfa) 90 Mcg Puff 1-2 PUFF IH Q4H PRN for SHORTNESS OF BREATH for 5 Days, #1 INH 0 Refills PHARMACY TO DISPENSE 1 INHALER FOR USE Prov: LIZBETGERRY JUAREZ 10/23/24 Guaifenesin/Dextromethorphan (Guaifenesin Dm Syrup) 100 Mg-10 Mg/5 Ml Syrup 5 ML PO TID for cough and congestion for 8 Days, #120 ML 0 Refills Prov: GERRY SOMERS 10/23/24 Additional Instructions: Please follow up with your primary doctor in 1-2 days. Continue oral hydration at home. If symptoms worsen please return to ER. FOLLOW-UP WITH PRIMARY CARE PROVIDER IN 1 TO 2 DAYS. TAKE MEDICATIONS DIRECTED HERE IN THE EMERGENCY ROOM. OKAY TO CONTINUE HOME MEDICATIONS UNLESS OTHERWISE DISCUSSED DURING YOUR VISIT IN THE EMERGENCY ROOM TODAY. RETURN TO YOUR NEAREST EMERGENCY ROOM IF SYMPTOMS WORSEN OR IF THERE IS NO IMPROVEMENT. CALL 911 IF YOU NEED IMMEDIATE ASSISTANCE. TAKE TYLENOL OR MOTRIN [id number] NEEDED AND IF NO CONTRAINDICATIONS ARE PRESENT. INCREASE ORAL HYDRATION. A WOUND CULTURE OR URINE CULTURE WAS ORDERED HERE IN THE EMERGENCY ROOM DEPARTMENT PLEASE FOLLOW-UP WITH PRIMARY CARE PROVIDER AND ADVISE THEM TO GET REPEAT PORTS FROM OUR FACILITY. IF YOU HAD ANY AMRVA WRAP/SPLINTS THAT WERE APPLIED HERE, PLEASE DO NOT REMOVE THEM UNTIL YOU SEE YOUR PRIMARY CARE OR SPECIALTY. Referrals: LARRY ROE MD (PCP) Time of Disposition: 22:34 I have reviewed the case, and I agree with, Diagnosis and Plan IZZY SOMERSLAURIE JUAREZ Oct 23, 2024 20:49
[2024-10-23 21:18] LABS: COVID19 (SARS ANTIGEN RAPID) PRESUMPTIVE NEGATIVE (NEGATIVE); INFLUENZA TYPE A Negative For Type A (NEGATIVE); INFLUENZA TYPE B Negative For Type B (NEGATIVE)
[2024-10-23 21:52] LABS: APPEARANCE,URINE CLEAR (CLEAR); BILIRUBIN,URINE NEGATIVE (NEGATIVE); COLOR,URINE LIGHT-YELLOW (YELLOW); GLUCOSE, URINE (UA) NEGATIVE (NEGATIVE); KETONES,URINE 10 mg/dL (NEGATIVE); LEUKOCYTE ESTERASE ,URINE NEGATIVE Leu/uL (NEGATIVE); NITRATE,URINE NEGATIVE (NEGATIVE); OCCULT BLOOD,URINE NEGATIVE (NEGATIVE); PROTEIN,URINE NEGATIVE (NEGATIVE); UROBILINOGEN,URINE 0.2 mg/dL (0.2-1.0)
[2024-10-23 21:59] LABS: ADD UA MICROSCOPIC NO
[2024-10-23] MEDS ORDERED: ALBUHFA IH (22:38)
[2024-10-23] MEDS ORDERED: METH4TAB3 PO (22:38)
[2024-10-23] MEDS ORDERED: GUAI237S60 PO (22:38)
[2024-10-23 22:40] VITALS: BP 120/87; PULSE 64; RESP 20; TEMP 97.8; O2SAT 97
--- NOTE | 2024-10-24 16:35 | NUR ---
BRI THE PHARMACIST TOOK THE SCRIPTS. PT WAS UNABLE TO RETREIVE THEM FROM THE LISTED PHARMACY AT THE TIME. [facility]. IT WAS OK'D BY ERIC JUAREZ
== END 2024-10-23 22:52 | disposition home or self-care (01) ==
LOC: EDH 17:48
DX: J40 Bronchitis, not specified as acute or chronic (principal); B34.9 Viral infection, unspecified; R74.8 Abnormal levels of other serum enzymes; I10 Essential (primary) hypertension; Z79.899 Other long term (current) drug therapy; Z20.822 Contact with and (suspected) exposure to COVID-19
CPT/HCPCS: 99285; 96374; 71045; 96375; 87426; 82550 ×2; 80076; 84484; 80048; 83880; 83690; 85025; 87804 ×2; 81003; 36415; 93005; 94640; J2919; J7030; J2405

== ENCOUNTER → 2024-11-02 | Outpatient (CLI) | payer OTHER ==
[~2024-11-02] MED LIST changes: +ALBUHFA IH; +GUAI237S60 PO; +METH4TAB3 PO
--- NOTE | 2024-11-02 16:54 | HMCSR ---
APPROVED REPORT Bilateral Lower Extremity Venous Study for DVT. Indications R/O DVT only as per Yahaira PALACIO, Prior Venous insufficiency doppler done on 10-20-24 Vein Imaging CFV (R): Normal flow, augmentation and compression. No evidence of DVT. SFJ (R): Normal flow, augmentation and compression. No evidence of DVT. FEM (R): Normal flow, augmentation and compression. No evidence of DVT. POP (R): Normal flow, augmentation and compression. No evidence of DVT. DFV (R): Normal flow, augmentation and compression. No evidence of DVT. PTV (R): Normal flow, augmentation and compression. No evidence of DVT. GSV (R): Peroneals (R): Normal flow, augmentation and compression. No evidence of DVT. CFV (L): Normal flow, augmentation and compression. No evidence of DVT. SFJ (L): Normal flow, augmentation and compression. No evidence of DVT. FEM (L): Normal flow, augmentation and compression. No evidence of DVT. POP (L): Normal flow, augmentation and compression. No evidence of DVT. DFV (L): Normal flow, augmentation and compression. No evidence of DVT. PTV (L): Normal flow, augmentation and compression. No evidence of DVT. Peroneals (L): Normal flow, augmentation and compression. No evidence of DVT. Technologist Impression Deep veins of bilateral lower extremities appear patent and compressible without thrombus. Cellulities seen bilaterally. RT LE greater than LT. LE. R/O DVT only as per Yahaira OTERON Prior Venous insufficiency doppler done on 10-20-24 Conclusion No DVT bilaterally Conclusion No DVT bilaterally
== END | disposition home or self-care (01) ==
LOC: SHCH 15:35
PROVIDERS: ATTEND Internal Medicine Cardiovascular Disease
DX: Z03.89 Encounter for observation for other suspected diseases and conditions ruled out (principal); I87.2 Venous insufficiency (chronic) (peripheral); I87.1 Compression of vein; R60.0 Localized edema
CPT/HCPCS: 93970

== ENCOUNTER 2024-11-26 10:19 | Observation (INO) | payer OTHER ==
[~2024-11-26] VITALS: Ht 182.9 cm; Wt 82.6 kg
[2024-11-26] MEDS ORDERED: acetaMINOPHEN 325 MG TAB PO PRN (11:30)
[2024-11-26] MEDS ORDERED: ondanSETRON 4MG INJ IVP PRN (11:30)
[2024-11-26 11:57] LABS: CREATININE 1.2 mg/dL (0.5-1.3)
[2024-11-26 12:38] LABS: CREATININE 1.2 mg/dL (0.5-1.3)
[2024-11-26 12:51] LABS: ALBUMIN 3.4 g/dL (3.5-5.0); BILIRUBIN,TOTAL 0.7 mg/dL (0.2-1.0); POTASSIUM 3.8 mmol/L (3.5-5.1); TOTAL PROTEIN, SERUM 6.6 g/dL (6.0-8.3)
--- NOTE | 2024-11-26 13:40 | NUR ---
RE: LT LOWER EXTREMITY VENOGRAM. PATIENT SCHEDULED FOR BILATERAL LOWER EXTREMITY VENOGRAM. SEVERAL ATTEMPTS MADE TO RT FOOT WITH NO SUCCESS. 22G IV PLACED TO LT FOOT. LT SIDED LOWER EXTREMITY VENOGRAM DONE AND LT FOOT IV REMOVED POST PROCEDURE. DRESSING APPLIED WITH NO BLEEDING NOTED. PATIENT TRANSPORTED TO ED VIA STRETCHER AT 1340.
--- NOTE | 2024-11-26 13:47 | NUR ---
PT JUST RETURNED FROM RADIOLOGY AND IS BEING [facility]STAIRS [facility]
[2024-11-26 13:51] VITALS: O2SAT 100
[2024-11-26 13:55] VITALS: BP 139/55; PULSE 47; RESP 18; TEMP 98.4
[2024-11-26] MEDS ORDERED: VANCOMYCIN PROTOCOL PER PHARMACY IV SCH (14:00)
[2024-11-26] MEDS ORDERED: VANCOMYCIN KIT 1 GM/250 ML IV.KIT IV SCH (14:00)
--- NOTE | 2024-11-26 14:11 | HMCIMG ---
US GUIDANCE FOR VASCULAR ACCES HISTORY: venous access guidance FINDINGS/IMPRESSION: Ultrasound images were obtained for procedure documentation. Please see report for more details. Lower extremity IV guidance for venogram.
[2024-11-26] MEDS ORDERED: IOHEXOL-350 75 ML VIAL IV ONE (14:21)
[2024-11-26] MEDS: VANCOMYCIN 750MG VIAL IVPB SCH (14:32)
[2024-11-26 16:00] VITALS: BP 134/66; PULSE 57; RESP 18; TEMP 98.1
--- NOTE | 2024-11-26 18:15 | NUR ---
PATIENT DISCHARGED. IV REMOVED WITH CATHETER INTACT. EDUCATED PATIENT ON FOLLOW UP APPOINTMENT.
== END 2024-11-26 18:15 | disposition home or self-care (01) ==
LOC: EDH 10:19 → EDHIP 10:20 → INTOOBSV 10:20 → 3DH 13:55
PROVIDERS: ADMIT Internal Medicine Hematology & Oncology; ATTEND Internal Medicine Hematology & Oncology
DX: L03.116 Cellulitis of left lower limb (principal); Z79.899 Other long term (current) drug therapy
CPT/HCPCS: 96365; 96366; 82565; 80053; 36415; 76937; G0379; G0378; Q9967; J3370

== ENCOUNTER 2025-06-17 06:57 | Day surgery (SDC) | payer OTHER ==
[2025-06-15 12:13] LABS: IMMATURE GRANULOCYTE ABSOLUTE 0.08 K/uL (0-1); NUCLEATED RED BLOOD CELLS 0.0 % (0.0-0.19); PLATELET COUNT (AUTO) 213 K/uL (130-400); RED BLOOD CELL COUNT(AUTO) 3.94 MIL/uL (4.50-6.20); RED CELL DISTRIBUTION WIDTH 14.5 % (11.0-15.5); WHITE BLOOD COUNT (AUTO) 5.8 K/uL (4.8-10.8)
[2025-06-15 12:24] LABS: INR 1.04 (0.85-1.15)
[2025-06-15 12:27] LABS: CREATININE 0.8 mg/dL (0.5-1.3); GLOMERULAR FILTR. RATE CALC 92.0 mL/min (>90); GLUCOSE,RANDOM 112.0 mg/dL (70-105); SODIUM SERUM 134.0 mmol/L (136-145); UREA NITROGEN, BLOOD 7.0 mg/dL (7-18)
[2025-06-15 12:35] VITALS: BP 130/57; PULSE 49; RESP 16; TEMP 98.4
--- NOTE | 2025-06-15 15:35 | NUR ---
REPORT MACIEL TUCKER INFORMED PT NOT ON BLOOD THINNERS OR ANTIARRHYTHMIC MEDICATIONS. PER MACIEL PT WAS GIVEN SAMPLE OF BLOOD THINNERS. ATTEMPTED TO CALL PT TO INFORM TO START TAKING. NO ANSWER. CALLED PT TODAY 06/16/25 AND INFORMED HE NEEDS TO START BLOOD THINNERS. PT REPORTED HE DOES NOT HAVE THEM SO WILL GO TO HEART CLINIC TO GUIDE TRAVEL. PT LATER REPORTED HE FOUND BLOOD THINNERS AND HAS STARTED TAKING. PT GIVEN ARRIVAL TIME FOR PROCEDURE.
[~2025-06-17] VITALS: Ht 180.3 cm; Wt 82.4 kg
[2025-06-17] VITALS (10 sets, daily range): BP systolic 103–140; BP diastolic 49–77; PULSE 41–53; RESP 14–16; TEMP 97.7
[~2025-06-17 06:57] MED LIST changes: -ALBUHFA IH; +FURO40TA5 PO; -GUAI237S60 PO; -LISI20TA24 PO; +LISI5TAB21 PO; -METH4TAB3 PO; -MORP100S6 PO; +PHARMACY COMMUNICATION MISC SCH; -TEST200V21 IM; -TRAZ-253 PO
[2025-06-17] MEDS ORDERED: MIDAZOLAM HCL 1 MG/ML 2ML VIAL IVP ONE (07:00)
[2025-06-17] MEDS ORDERED: LIDOCAINE HCL 2% VISCOUS 15 ML UDCUP PO ONE (07:00)
[2025-06-17] MEDS ORDERED: APIX5TAB PO (08:24)
--- NOTE | 2025-06-17 08:40 | NUR ---
PT ASKED IF HE HAD A RIDE HOME OR AN EMERGENCY CONTACT SO WE CAN CALL. NON PROVIDED BY PT. 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
[2025-06-17] MEDS: MIDAZOLAM HCL 1 MG/ML 2ML VIAL IVP ONE ×3 (09:48→09:51)
--- NOTE | 2025-06-17 09:49 | PRN ---
Procedure Note INDICATION FOR PROCEDURE: [] Atrial fibrillation symptomatic Hypercoagulable state PROCEDURE: [] Conscious sedation Transesophageal echocardiogram (please see separate report) Direct current cardioversion synchronized x1 with caodaism of sinus rhythm at 150 joules DATE OF PROCEDURE: June 17, 2025 BENEFITS SPECIALIST: Salbador Almanzar MD, F.A.C.C. PROCEDURE NOTE: [] Patient had informed consent obtained for transesophageal echocardiogram guided direct current cardioversion after adequate sedation was performed liv probe was placed into the patient's esophagus without difficulty. Images were obtained and there was no evidence of left atrial appendage thrombus. Please see separate report. Patient was then cleared to proceed with direct current cardioversion and 150 joules of synchronized electricity was administered to chest wall x1 with caodaism of sinus rhythm with a junctional escape noted. IMPRESSION: [] Successful direct current cardioversion PLAN: [] Continue Eliquis 5 mg twice daily for 4 weeks Schedule follow up 2 weeks No driving motor vehicle or operating heavy machinery for 24 hours SALBADOR ALMANZAR MD Jun 17, 2025 09:49
--- NOTE | 2025-06-17 10:30 | NUR ---
PT TOLD TO CALL FOR A RIDE HOME
--- NOTE | 2025-06-17 11:28 | HMCSR ---
APPROVED REPORT EXAM: Transesophageal echocardiogram with color flow Doppler. INDICATION ICD: Atrial Fibrillation PROCEDURE After obtaining informed consent, patient underwent transesophageal echo in the Day Patient Room 15. 15 mL 2% Viscous Lidocaine was given as a topical anesthetic prior to the administration of the conscious sedation. Type of Sedation: Conscious Sedation Sedation was administered by Fabian Espinal RN. Sedation was achieved with refer to patient chart. intravenously. Transesophageal probe was inserted and advanced into esophagus without difficulty by Dr. Almanzar. SEKOU was performed and images were obtained, probe was removed without complications. Prior to cardioversion, of refer to patient chart was administered. Synchronized Cardioversion attempted: Successful Synchronized Cardioversion acheived with 150 Joules after 1 attempt(s). Rhythm following Synchronized Cardioversion: Normal Sinus Rhythm Throughout the procedure, the blood pressure, pulse oximetry, cardiac rhythm, and rate were monitored. The patient tolerated the procedure without adverse effects. Recovery from conscious sedation was uneventful and vital signs were stable. Left Ventricle Left ventricular cavity size is normal. Mild left ventricular hypertrophy. LVEF is 50-55%. Right Ventricle The right ventricle is severely dilated. The right ventricular systolic function is normal. Atria The left atrium is severely dilated. No thrombus is visualized in the left atrial appendage. No evidence of PFO by color flow Doppler. The right atrium is severely dilated. Aortic Valve The aortic valve is normal in structure and function. Trace aortic regurgitation. There is no aortic valvular stenosis. Mitral Valve The mitral valve is normal in structure and function. Mitral regurgitation is moderate. There is no mitral valve stenosis. Tricuspid Valve The tricuspid valve is normal in structure and function. There is no tricuspid valve regurgitation noted. Pulmonic Valve The pulmonary valve is normal in structure and function. There is no pulmonic valvular regurgitation. Great Vessels The aortic root is normal in size. Pericardium No pericardial effusion.
--- NOTE | 2025-06-17 12:15 | NUR ---
PT DID CALL TO CONFIRM FAMILY TO [facility] AND WAS TOLD THEY ARE ON THE WAY FOR HIM FROM [place]. I DID CONFIRM THIS.
--- NOTE | 2025-06-17 17:45 | EKG ---
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
--- NOTE | 2025-06-17 17:52 | EKG ---
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: [id number] : 1950 Requested By: SALBADOR ALMANZAR Order Number: [id number] Reading MD: Salbador Almanzar Measurements Intervals [place] Rate: 49 P: 0 UT: 0 QRS: -1 QRSD: 130 T: 6 QT: 454 QTc: 410 Interpretive Statements Normal Sinus Rhythm with junctional escape Right bundle branch block Compared to ECG 06/17/2025 08:02:49 Uncertain supraventricular rhythm now present AV dissociation now present AV block, advanced (high-grade) no longer present Electronically Signed On 06-19-2025 09:28:35 [employer] by Salbador Almanzar Please click the below link to view image of tracing.
== END 2025-06-17 12:20 | disposition home or self-care (01) ==
LOC: DAH 06:57
PROVIDERS: ATTEND Internal Medicine Cardiovascular Disease
DX: I48.91 Unspecified atrial fibrillation (principal); R06.09 Other forms of dyspnea; I44.0 Atrioventricular block, first degree; I45.10 Unspecified right bundle-branch block; D68.59 Other primary thrombophilia; I34.0 Nonrheumatic mitral (valve) insufficiency; I10 Essential (primary) hypertension; I87.1 Compression of vein; I87.2 Venous insufficiency (chronic) (peripheral); I89.0 Lymphedema, not elsewhere classified; Z95.820 Peripheral vascular angioplasty status with implants and grafts; Z79.899 Other long term (current) drug therapy
CPT/HCPCS: 80048; 85025; 85610; 85730; 36415; 92960; 93312; 93005 ×2; 99152; 99153; 93325; J3010 ×2; J2250 ×3; A4615; A4215; A4657; A4222; A4221; A4663; A4216; A4606; A4223 ×3; G0500

== ENCOUNTER 2025-07-08 18:20 | Emergency (ER) | payer OTHER ==
[~2025-07-08] VITALS: Ht 180.3 cm; Wt 80.7 kg
[~2025-07-08 18:20] MED LIST changes: +APIX5TAB PO; -PHARMACY COMMUNICATION MISC SCH
--- NOTE | 2025-07-08 19:33 | NUR ---
PT CARE ASSUMED AT THIS TIME. PT PLACED IN ED ROOM 11.
--- NOTE | 2025-07-08 19:34 | ERN ---
ED Note History of Present Illness Stated Complaint: CHANGE DRESSING TO RT FOOT Chief Complaint: Wound Check Time Seen by MD: 19:24 Dictation: Patient was sitting in the lobby and there was an inordinate delay today and I assumed care during shift change at 7:00 p.m. This is a 74-year-old male who presented to the emergency room stating that he needed and dressing change for his right foot. Patient stated that he had a cyst removed by Dr. Cabrera a few weeks ago. He has been getting wound care by home health care nurses. Apparently there was an issue with the insurance of coverage in the home health care nurses never came. He also indicated he is taking antibiotics for the foot. He denied any fever chills or rigors. The last dressing change was on Friday which is 2 days ago. Patient denied any pain or changes in the wound. No bleeding. Temperature 97.9 pulse 56 respirations 20 blood pressure initially was 93/51 in the triage however as he has been in the emergency room his blood pressure has improved significantly to 120s over 80s. His chronic medical problems include hypertension, patient is also on anticoagulation with a apixaban for atrial fibrillation and patient had transesophageal echocardiogram done on 02/[address] 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 It also appears that the patient has a history of idiopathic pancreatitis, remote seizure history and he has not had any seizures in the past 5 years, gas troesophageal reflux disease and chronic pain syndrome Allergies: Coded Allergies: ketorolac (Unverified Allergy, Unknown, VOMITTING, 01/10/24) naloxone (Unverified Allergy, Unknown, 11/26/24) Home Meds Reported Medications Apixaban (Eliquis) 5 Mg Tablet, 1 TAB PO BID for 30 Days, #60 TAB 0 Refills 06/17/25 Furosemide (Furosemide) 40 Mg Tablet, 40 MG PO AD PRN for EDEMA, TAB 06/15/25 Lisinopril (Lisinopril) 5 Mg Tablet, 5 MG PO NOON, TAB 06/15/25 Naproxen (Naproxen) 500 Mg Tablet, 1 TAB PO BID PRN for PAIN 01/10/24 Past Medical History Past Medical History: Hypertension, Other Additional Past Medical Hx: CARPAL TUNNEL Surgical History: Other Surgical History Other: RT HAND CARPAL TUNNEL, RT FOOT Family History: Negative Social History: Negative RN Note Reviewed/Agreed w/PFSH: Yes Review of System Dictation Constitutional: Negative for fever,chills, and weight loss Eyes: Negative for injury, pain,redness, and discharge ENT: Negative for injury,pain or swelling Cardiovascular: Negative for chest pain, palpitations, and edema Respiratory: Negative for shortness of breath, cough, and wheezing, Abdomen/GI: Negative for abdominal pain, nausea, vomiting, diarrhea, and constipation Back: Negative for injury and pain : Negative for injury, bleeding and discharge MS/Extremity: Negative for injury and deformity Skin: Negative for rash, and discoloration postop right foot surgery. Requesting wound care and dressing change Neuro: Negative for headache, weakness, numbness, tingling, and seizure Psych: Negative for suicide ideation, homicidal ideation, and hallucinations Initial Vital Sign VS Vital Signs Date Time Temp Pulse Resp B/P (MAP) Pulse Ox O2 Delivery O2 Flow Rate FiO2 07/08/25 19:17 97.9 56 20 93/51 97 Room Air 07/08/25 19:53 0 21 Physical Exam Dictation General: awake, alert, NAD Head/Face: Normocephalic, atraumatic Eyes: PERRL, EOMI, vision at baseline ENT: oral cavity clear, TMs clear, no signs of infection Neck: Trachea midline, supple, no nuchal rigidity Cardiovascular: RRR, normal S1/S2, No MRGs, no JVD Respiratory: CTAB, no respiratory distress, No rales or wheezes Abdomen: Soft, non-tender, non-distended, normal bowel sounds, no guarding or rebound. Skin: Warm, dry, normal turgor, no rash MS/Extremity: Pulses equal, no cyanosis, neurovascular intact, FROM right foot on the plantar surface there is a large area of skin missing and there is also a wound which is about 2-1/2 cm at the base of the great toe which has small amount of exudate. No obvious necrotic tissue pus or bleeding. Surrounding skin is excoriating and peeling Neuro: COAx4, GCS 15, strength 5/5, CN 2-12 intact, normal cerebellar exam, normal gait, Psych: Normal behavior, mood, and affect normal Extremities-trace edema without any palpable cords, Homans sign is negative Results (Laboratory/Radiology) Laboratory/Radiology Laboratory Tests Test 07/08/25 20:30 White Blood Count 7.8 K/uL (4.8-10.8) Red Blood Count 3.15 MIL/uL (4.50-6.20) L Hemoglobin 9.5 g/dL (14.0-18.0) L Hematocrit 28.9 % (42-54) L Mean Corpuscular Volume 91.7 fL (79-99) Mean Corpuscular Hemoglobin 30.2 pg (27.0-33.0) Mean Corpuscular Hemoglobin Concent 32.9 g/dL (32.0-36.0) Red Cell Distribution Width 14.6 % (11.0-15.5) Platelet Count 264 K/uL (130-400) Mean Platelet Volume 10.0 fL (7.5-10.5) Immature Granulocyte % (Auto) 0.5 % (0-1) Neutrophils (%) (Auto) 74.7 % (40.0-77.0) Lymphocytes (%) (Auto) 16.1 % (21.0-51.0) L Monocytes (%) (Auto) 7.8 % (3.0-13.0) Eosinophils (%) (Auto) 0.5 % (0.0-8.0) Basophils (%) (Auto) 0.4 % (0.0-5.0) Neutrophils # (Auto) 5.8 K/uL (1.8-7.7) Lymphocytes # (Auto) 1.3 K/uL (1.0-4.8) Monocytes # (Auto) 0.6 K/uL (0.1-1.0) Eosinophils # (Auto) 0.04 K/uL (0.00-0.70) Basophils # (Auto) 0.03 K/uL (0.00-0.20) Absolute Immature Granulocyte (auto 0.04 K/uL (0-1) Nucleated Red Blood Cells 0.0 % (0.0-0.19) Sodium Level 127 mmol/L (136-145) L Potassium Level 4.8 mmol/L (3.5-5.1) Chloride Level 95 mmol/L (101-111) L Carbon Dioxide Level 23 mmol/L (21-32) Blood Urea Nitrogen 8 mg/dL (7-18) Creatinine 1.2 mg/dL (0.5-1.3) Glomerular Filtration Rate Calc 63 mL/min (>90) Random Glucose 106 mg/dL (70-105) H Total Calcium 8.3 mg/dL (8.5-10.1) L Labs Reviewed?: Yes ED Course ED Course Orders Procedure Category Date Status Time Cbc With Differential LAB 07/08/25 Complete 19:56 Basic Metabolic Panel LAB 07/08/25 Complete 19:56 0.9%Nacl 1000ml (Ns PHA 07/08/25 Complete 1000ml) 20:00 Current Medications Medications (Trade) Dose Ordered Sig/Bryan Route PRN Reason Start Time Stop Time Status Last Admin Dose Admin Sodium Chloride 1,000 ml @ 0 mls/hr ONCE IV 07/08/25 20:00 07/08/25 22:07 DC Vital Signs Date Time Temp Pulse Resp B/P (MAP) Pulse Ox O2 Delivery O2 Flow Rate FiO2 07/08/25 22:05 97.9 60 15 118/52 100 Room Air* 0 21 07/08/25 20:55 82 17 122/50 99 Room Air* 0 21 07/08/25 19:53 97.9 80 17 117/45 100 Room Air* 0 21 07/08/25 19:17 97.9 56 20 93/51 97 Room Air Medical Decision Making MDM Differential diagnosis: Postop wound of right foot, cellulitis, abscess, deep tissue infection, osteomyelitis This is a 74-year-old male who presented to the emergency room stating that he needed and dressing change for his right foot. Patient stated that he had a c yst removed by Dr. Cabrera a few weeks ago. He has been getting wound care by home health care nurses. Apparently there was an issue with the insurance of coverage in the home health care nurses never came. He also indicated he is taking antibiotics for the foot. He denied any fever chills or rigors. The last dressing change was on Friday which is 2 days ago. Patient denied any pain or changes in the wound. No bleeding. Temperature 97.9 pulse 56 respirations 20 blood pressure initially was 93/51 in the triage however as he has been in the emergency room his blood pressure has improved significantly to 120s over 80s. His chronic medical problems include hypertension, patient is also on anticoagulation with a apixaban for atrial fibrillation It also appears that the patient has a history of idiopathic pancreatitis, remote seizure history and he has not had any seizures in the past 5 years, gastroesophageal reflux disease and chronic pain syndrome I had requested gentle hydration but patient felt that he did not need them as the blood pressures have significantly improved to normal. 9:00 p.m. CBC shows a hemoglobin of 9.5 white count 7.8 platelets 264 Rationale: Tests considered and ordered secondary to shared decision making include: Labs Previous outside records reviewed: Old ER visits. Risk of complication and/or morbidity or mortality of patient management: None Medications-Per medication reconciliation Need for hospitalization: Patient does not meet criteria for hospitalization. Need for emergency major/minor surgery: No There are no social concerns with this patient. Prescription drug management Prescriptions will include symptomatic care Patient's prior external medical records from other ER visits were reviewed by me as indicated. Prior testing and results from previous visits were reviewed. Prior tests were taken into account with medical decision making and resource utilization, independent historian/historians were used to obtain complete medical history. I independently interpreted the test that were performed, results were reviewed by me and considered findings on radiology if ordered. Medical management and examination interpretation discussions were had by me with other qualified healthcare professionals as indicated for the patient's care. Problem List Problem List: (1) Open wound of right foot (2) Visit for wound care (3) Transient hypotension (4) Idiopathic pancreatitis (5) History of atrial fibrillation (6) Chronic pain syndrome DX & DISP Disposition: Discharge Departure Impression: Primary Impression: Open wound of right foot Additional Impressions: Status post right foot surgery, Visit for wound care, Transient hypotension, History of atrial fibrillation, Idiopathic pancreatitis, Chronic pain syndrome Condition: Stable Additional Instructions: Patient and the caregiver have been informed of all the diagnostic tests and the imaging conducted during the today's visit to the emergency room and has gerard balized understanding of the results I have personally reviewed and interpreted all diagnostic exams performed here in the ER today as well as the vital signs documented by the nursing staff. The patient is now being discharged to home and should follow up with the primary care physician or the specialist as directed by the ER staff. Patient to follow up with his primary care physician and also Dr. Cabrera for ongoing care of his right foot Referrals: LARRY ROE MD (PCP) POLLY MIN MD Jul 08, 2025 19:33
[2025-07-08] MEDS: 0.9%NACL 1000ML 1,000 ML IV SCH (20:00)
--- NOTE | 2025-07-08 20:44 | NUR ---
DRESSING CHANGE TO RIGHT FOOT DONE VERBALLY ORDERED BY ED THOPU. MINIMAL SEROUS FLUID, AND NO ERYTHEMA. AREA CLEANED, NON-ADHERENT PAD PLACED AND SECURED WITH GAUZE. PT TOLERATED PROCEDURE WELL WITH NO SIGNS OF DISTRESS.
--- NOTE | 2025-07-08 20:51 | NUR ---
PT REFUSED IV FLUIDS AND IV PLACEMENT. PT EDUCATED ABOUT THE IMPORTANCE OF IV FLUID THERAPY ORDERED BY ED MD. PT VERBALIZED UNDERSTANDING OF EDUCATION. PT STILL REFUSING IV FLUIDS. ED MD PAKO MADE AWARE.
[2025-07-08 20:55] LABS: IMMATURE GRANULOCYTE ABSOLUTE 0.04 K/uL (0-1); NUCLEATED RED BLOOD CELLS 0.0 % (0.0-0.19); PLATELET COUNT (AUTO) 264 K/uL (130-400); RED BLOOD CELL COUNT(AUTO) 3.15 MIL/uL (4.50-6.20); RED CELL DISTRIBUTION WIDTH 14.6 % (11.0-15.5); WHITE BLOOD COUNT (AUTO) 7.8 K/uL (4.8-10.8)
[2025-07-08 21:06] LABS: CREATININE 1.2 mg/dL (0.5-1.3); GLOMERULAR FILTR. RATE CALC 63.0 mL/min (>90); GLUCOSE,RANDOM 106.0 mg/dL (70-105); SODIUM SERUM 127.0 mmol/L (136-145); UREA NITROGEN, BLOOD 8.0 mg/dL (7-18)
[2025-07-08 22:05] VITALS: BP 118/52; PULSE 60; RESP 15; TEMP 97.9; O2SAT 100
== END 2025-07-08 22:00 | disposition home or self-care (01) ==
LOC: EDH 18:20
DX: S91.301D Unspecified open wound, right foot, subsequent encounter (principal); I95.89 Other hypotension; I48.91 Unspecified atrial fibrillation; I10 Essential (primary) hypertension; G89.4 Chronic pain syndrome; K85.90 Acute pancreatitis without necrosis or infection, unspecified; Z48.01 Encounter for change or removal of surgical wound dressing; Z87.19 Personal history of other diseases of the digestive system; Z79.01 Long term (current) use of anticoagulants; X58.XXXD Exposure to other specified factors, subsequent encounter
CPT/HCPCS: 36415; 80048; 85025; 99283

== ENCOUNTER → 2025-08-09 | Outpatient (CLI) | payer OTHER ==
--- NOTE | 2025-08-10 06:46 | HMCIMG ---
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 There is erosion and rarefaction of the subchondral bone with prominent subchondral marrow edema involving the lateral tibial condyle and lateral femoral condyle, consistent with advanced degenerative and inflammatory osteochondral destruction. Osteonecrosis is present in the medial femoral condyle with subchondral collapse and marrow signal alteration. Marginal erosions are also noted along the medial tibial plateau and medial femoral condyle, indicating a bi-compartmental erosive process. Menisci Near-total degradation and destruction of the lateral meniscus, which is diffusely macerated with loss of normal meniscal morphology, compatible with an advanced, complex degenerative tear and extrusion in the lateral compartment. Medial meniscus shows degenerative signal changes with a complex tear involving the body and posterior horn, without intact normal triangular morphology. Ligaments The anterior cruciate ligament demonstrates complete loss of continuity, compatible with a chronic complete ACL tear, with secondary buckling and increased curvature of the posterior cruciate ligament indicating altered sagittal plane stability. Medial collateral ligament shows degenerative thickening without acute high-grade tear; lateral collateral ligament complex appears relatively preserved. Tendons and myotendinous units Popliteus tendon demonstrates tendinosis with increased intrasubstance signal and an associated sprain at the myotendinous junction, without complete rupture. Intramuscular fluid collection within the lateral head of gastrocnemius measures approximately 7 4 cm; its inferior extent is incompletely covered on this study, and the collection may represent a hematoma, dissecting Bakers cyst leak, or abscess in the appropriate clinical context. Quadriceps, patellar, and remaining periarticular tendons are intact. Joint fluid and synovium Gross knee joint effusion with suprapatellar extension is present. The synovium is thickened and T2 hypointense, compatible with chronic synovitis with possible hemosiderin or fibrotic change, as can be seen in chronic inflammatory or erosive arthropathy and in the setting of recurrent hemarthrosis. Other soft tissues Periarticular soft tissues show edema adjacent to the lateral compartment and around the popliteuslateral gastrocnemius region. No discrete extra-articular soft tissue mass is defined beyond the described intramuscular collection. Patellofemoral compartment Patellofemoral cartilage and alignment are not fully characterized in the provided description but do not demonstrate the same degree of destructive change as the lateral compartment on the sequences available. 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 * Osteonecrosis of the medial femoral condyle and complex degenerative tear of the medial meniscus body and posterior horn, with marginal erosions of the medial tibial plateau and femoral condyle, signifying additional medial compartment structural compromise. * Popliteus tendinosis with myotendinous sprain and an approximately 7 4 cm intramuscular collection in the lateral gastrocnemius; the incomplete assessment of its inferior extent leaves differential considerations of dissecting Bakers cyst, chronic hematoma, or less likely abscess, depending on clinical and laboratory correlation. * Gross knee joint effusion with thickened, T2-hypointense synovium consistent with chronic synovitis in an erosive arthropathy background, likely contributing to pain, recurrent swelling, and stiffness. In the present clinical context of a 74-year-old male with severe erosive, bi-compartmental disease and chronic ligamentous insufficiency, manning diagnostic considerations include: End-stage secondary osteoarthritis with superimposed chronic inflammatory or erosive arthropathy. Advanced degenerative arthropathy with osteonecrosis and chronic post-instability changes. Correlation with serologic markers for inflammatory arthritis, crystal arthropathy, and clinical history of prior trauma or infection is important for refinement of etiology. /Greer
== END | disposition home or self-care (01) ==
LOC: RAH 15:05
PROVIDERS: ATTEND Family Medicine
DX: S83.241A Other tear of medial meniscus, current injury, right knee, initial encounter (principal); M25.561 Pain in right knee; R60.0 Localized edema; M11.861 Other specified crystal arthropathies, right knee; M17.11 Unilateral primary osteoarthritis, right knee; M87.851 Other osteonecrosis, right femur; M17.5 Other unilateral secondary osteoarthritis of knee; X58.XXXA Exposure to other specified factors, initial encounter; Y93.89 Activity, other specified; Y92.89 Other specified places as the place of occurrence of the external cause; Y99.8 Other external cause status
CPT/HCPCS: 73721